=== PATIENT | female | born 1995 | race Caucasian/White ===

== ENCOUNTER 2017-04-28 10:57 | Emergency (ER) | payer SELFPAY ==
[~2017-04-28] VITALS: Ht 149.9 cm; Wt 65.8 kg
[2017-04-28] MEDS ORDERED: IV NORMAL SALINE 1,000ML 1,000 ML IV SCH (11:32)
[2017-04-28] MEDS ORDERED: KETOROLAC 30 MG/ML VIAL. IV ONE (11:45)
[2017-04-28] MEDS ORDERED: ONDANSETRON PF 4 MG/2 ML VIAL. IV ONE (11:45)
[2017-04-28] MEDS ORDERED: 0.9 % SODIUM CHLORIDE 10 ML DISP.SYRIN. IV PRN (11:45)
--- NOTE | 2017-04-28 11:51 | PHYS DOC ---
Past History Past Medical History: No Pertinent History Past Surgical History: No Surgical History Smoking: Non-smoker Alcohol Use: None Drug Use: None Adult General Chief Complaint Chief Complaint: ABDOMINAL PAIN HPI HPI 21 -year-old female patient complaining of epigastric pain that started 2 nights ago as a constant pain with moving to lower abdomen and associated with frequent episodes of nausea and vomiting and diarrhea. Patient states she had about 10 episodes of vomiting every day and since yesterday started to have 10 episodes of diarrhea with urinary frequency. Patient rated her pain 10 over 10 and denies fever and chills, vaginal bleeding or discharge, sick contacts, history of the same pain. Patient state LMP was 03/14/2017 and she usually has irregular menstruation because of endometriosis. Review of Systems Review of Systems Constitutional: Denies fever or chills [] Eyes: Denies change in visual acuity, redness, or eye pain [] HENT: Denies nasal congestion or sore throat [] Respiratory: Denies cough or shortness of breath [] Cardiovascular: No additional information not addressed in HPI [] GI: Reports abdominal pain, nausea, vomiting, diarrhea [] : Denies dysuria or hematuria [] Musculoskeletal: Denies back pain or joint pain [] Integument: Denies rash or skin lesions [] Neurologic: Denies headache, focal weakness or sensory changes [] Endocrine: Denies polyuria or polydipsia [] All other systems were reviewed and found to be within normal limits, except as documented in this note. Current Medications Current Medications Current Medications Medications (Trade) Dose Ordered Sig/Martina Start Time Stop Time Status Last Admin Dose Admin Ketorolac Tromethamine (Toradol) 30 mg 1X ONCE 04/28/17 11:45 04/28/17 11:46 UNV Ondansetron HCl (Zofran) 4 mg 1X ONCE 04/28/17 11:45 04/28/17 11:46 UNV Sodium Chloride (Normal Saline Flush) 10 ml QSHIFT PRN 04/28/17 11:45 UNV Allergies Allergies Allergies Coded Allergies Type Severity Reaction Last Updated Verified Penicillins Allergy Intermediate Hives 11/12/13 Yes diphenhydramine Allergy Intermediate Hives 11/12/13 Yes Physical Exam Physical Exam Constitutional: Well nourished, mild distress, non-toxic appearance. [] HENT: Normocephalic, atraumatic, bilateral external ears normal, oropharynx moist, no oral exudates, nose normal. [] Eyes: PERRLA, EOMI, conjunctiva normal, no discharge. [] Neck: Normal range of motion, no tenderness, supple, no stridor. [] Cardiovascular:Heart rate regular rhythm, no murmur [] Lungs & Thorax: Bilateral breath sounds clear to auscultation [] Abdomen: Bowel sounds normal, soft, no tenderness, no masses, no pulsatile masses. [] Skin: Warm, dry, no erythema, no rash. [] Back: No tenderness, no CVA tenderness. [] Extremities: No tenderness, no cyanosis, no clubbing, ROM intact, no edema. [] Neurologic: Alert and oriented X 3, normal motor function, normal sensory function, no focal deficits noted. [] Psychologic: Anxious, judgement normal, mood normal. [] Current Patient Data Lab Results Laboratory Tests Test 04/28/17 11:19 POC Urine HCG, Qualitative hcg negative (Negative) EKG EKG [] Radiology/Procedures Radiology/Procedures [] [place] [address] IMAGING REPORT Signed PATIENT: ELBERT RIBERA ACCOUNT: [id number] : 1995 LOCATION: ER AGE: 21 SEX: F EXAM STATUS: REG ER ORD. PHYSICIAN: EDUARDO MARTINEZ MD REASON: abdominal pain and hematuria PROCEDURE: CT ABDOMEN PELVIS WO CONTRAST CT study of the abdomen and pelvis without contrast Clinical indications: Right flank pain with vomiting for 2 days. Technique: Noncontrast helical CT scanning of the abdomen and pelvis was performed. Without contrast, the sensitivity to detect organ pathology and GI tract pathology decreased. PQRS Compliance Statement: One or more of the following individualized dose reduction techniques were utilized for this examination: 1. Automated exposure control 2. Adjustment of the mA and/or kV according to patient size 3. Use of iterative reconstruction technique comparison: None available. Findings: The liver and spleen and pancreas are homogeneous in appearance on this noncontrast study. The gallbladder is normal and no extrahepatic biliary ductal dilatation is seen. No adrenal mass is evident. No renal stone or ureteral stone or hydronephrosis or hydroureter is seen. The urinary bladder is not distended. No focal aneurysmal dilatation of the abdominal aorta is seen. No enlarged abdominal or pelvic lymphadenopathy is seen. No uterine mass or fibroid is seen. There is a cyst of the right ovary measuring 2 cm. No free fluid is seen within the cul-de-sac. No obstructive bowel pattern is seen. The terminal ileum is unremarkable. The appendix is normal. No free air or free fluid or mesenteric edema is seen. No osteolytic process is seen. No lung base consolidation is evident. IMPRESSION: No urinary tract stone or hydronephrosis or hydroureter is seen. 2 cm right ovarian cyst. No free fluid is evident. DICTATED AND SIGNED BY: GIANNI MILLARD MD DATE: 04/28/17 1325 CC: EDUARDO MARTINEZ MD; PCP,NO ~ Course & Med Decision Making Course & Med Decision Making Pertinent Labs and Imaging studies reviewed. (See chart for details) Evolution of patient in ER showed 21-year-old female patient with complaining of missed period and nausea and vomiting and diarrhea. Patient had unremarkable physical exam. UA was negative for but patient requested blood test for that was negative. Potassium was 3.2 and oral potassium was given. Patient tolerated oral intake. CT of abdomen and pelvis was unremarkable. Plan discharge patient home with diagnosis of acute gastroenteritis and hypokalemia. [] Dragon Disclaimer Dragon Disclaimer This electronic medical record was generated, in whole or in part, using a voice recognition dictation system. Departure Departure: Impression: Primary Impression: Acute gastroenteritis Additional Impressions: Negative test Irregular menses Hypokalemia Disposition: HOME, SELF-CARE (At 1355) Condition: IMPROVED Referrals: [facility] (PCP) Patient Instructions: Hypokalemia, Viral Gastroenteritis Additional Instructions: Drink plenty of liquids Follow-up with your primary care physician in 3-5 days Return to ER if not getting better Scripts Ondansetron (ZOFRAN ODT) 4 Mg Tab.rapdis 1 TAB SL Q8HRS, #15 TAB Prov: EDUARDO MARTINEZ MD 04/28/17 Problem Qualifiers EDUARDO MARTINEZ MD Apr 28, 2017 11:51
[2017-04-28 11:52] LABS: CLARITY,URINE CLEAR; COLOR,URINE YELLOW; GLUCOSE,URINE NEG (NEG); UROBILINOGEN,URINE 0.2 mg/dL (0.2 mg/dL)
[2017-04-28 11:53] LABS: NITRITE,URINE NEG (NEG)
[2017-04-28 11:54] LABS: BILIRUBIN,URINE NEG (NEG)
[2017-04-28 12:07] LABS: BARBITURATES NEG (NEG); BENZODIAZEPINES NEG (NEG); CANNABINOIDS POS (NEG); COCAINE NEG (NEG); METHADONE NEG (NEG); OPIATES NEG (NEG); PHENCYCLIDINE NEG (NEG)
[2017-04-28 12:10] LABS: AMPHETAMINE/METHAMPHETAMINE NEG (NEG)
[2017-04-28 12:11] LABS: BASO % 0 % (0-3); EOS # 0.1 x10^3/uL (0.0-0.7); EOS % 1 % (0-3); HEMATOCRIT 41.7 % (36.0-47.0); HEMOGLOBIN 14.3 g/dL (12.0-15.5); LYMPH % 19 % (24-48); MEAN CORPUSCULAR HEMOGLOBIN 31 pg (25-35); MEAN CORPUSCULAR HGB CONC 34 g/dL (31-37); MEAN CORPUSCULAR VOLUME 89 fL (79-100); MONO # 0.6 x10^3/uL (0.0-1.1); MONO % 5 % (0-9); NEUT # 8.3 x10^3uL (1.8-7.7); NEUT % 75 % (31-73); PLATELET COUNT 310 x10^3/uL (140-400); RED BLOOD COUNT 4.68 x10^6/uL (3.50-5.40); RED CELL DISTRIBUTION WIDTH 13.3 % (11.5-14.5); WHITE BLOOD COUNT 11.1 x10^3/uL (4.0-11.0)
[2017-04-28 13:05] LABS: PREG TEST PT QUAL NEGATIVE (NEG)
[2017-04-28 13:09] LABS: ALBUMIN 3.9 g/dL (3.4-5.0); ALBUMIN/GLOBULIN RATIO 1.1 (1.0-1.7); CALCIUM 8.7 mg/dL (8.5-10.1); CREATININE 0.5 mg/dL (0.6-1.0); GFR 155.7; POTASSIUM 3.2 mmol/L (3.5-5.1); TOTAL BILIRUBIN 0.5 mg/dL (0.2-1.0); TOTAL PROTEIN 7.3 g/dL (6.4-8.2)
--- NOTE | 2017-04-28 13:42 | RAD ---
CT study of the abdomen and pelvis without contrast Clinical indications: Right flank pain with vomiting for 2 days. Technique: Noncontrast helical CT scanning of the abdomen and pelvis was performed. Without contrast, the sensitivity to detect organ pathology and GI tract pathology decreased. PQRS Compliance Statement: One or more of the following individualized dose reduction techniques were utilized for this examination: 1. Automated exposure control 2. Adjustment of the mA and/or kV according to patient size 3. Use of iterative reconstruction technique comparison: None available. Findings: The liver and spleen and pancreas are homogeneous in appearance on this noncontrast study. The gallbladder is normal and no extrahepatic biliary ductal dilatation is seen. No adrenal mass is evident. No renal stone or ureteral stone or hydronephrosis or hydroureter is seen. The urinary bladder is not distended. No focal aneurysmal dilatation of the abdominal aorta is seen. No enlarged abdominal or pelvic lymphadenopathy is seen. No uterine mass or fibroid is seen. There is a cyst of the right ovary measuring 2 cm. No free fluid is seen within the cul-de-sac. No obstructive bowel pattern is seen. The terminal ileum is unremarkable. The appendix is normal. No free air or free fluid or mesenteric edema is seen. No osteolytic process is seen. No lung base consolidation is evident. IMPRESSION: No urinary tract stone or hydronephrosis or hydroureter is seen. 2 cm right ovarian cyst. No free fluid is evident.
[2017-04-28] MEDS ORDERED: ONDA4TAB10 SL (13:53)
[2017-04-28] MEDS ORDERED: POTASSIUM CHLORIDE 20 MEQ TABLET.ER. PO ONE (14:15)
== END 2017-04-28 14:06 | disposition home or self-care (01) ==
LOC: ER 10:57
DX: Z32.02 Encounter for pregnancy test, result negative (principal); K52.89 Other specified noninfective gastroenteritis and colitis; E87.6 Hypokalemia; N92.6 Irregular menstruation, unspecified; N83.201 Unspecified ovarian cyst, right side; Z88.0 Allergy status to penicillin; Z88.8 Allergy status to other drugs, medicaments and biological substances
CPT/HCPCS: 36415; 74176; 80053; 80307; 81003; 81025; 83690; 84703; 85025; 96361; 96374; 96375; 99285; J1885; J2405; G0479; J7030

== ENCOUNTER 2017-07-04 10:03 | Emergency (ER) | payer SELFPAY ==
[~2017-07-04] VITALS: Ht 149.9 cm; Wt 61.2 kg
[~2017-07-04 10:03] MED LIST: ONDA4TAB10 SL
[2017-07-04] MEDS ORDERED: IV NORMAL SALINE 1,000ML 1,000 ML IV SCH (10:15)
[2017-07-04] MEDS ORDERED: MORPHINE SULFATE 2 MG/ML DISP.SYRIN. IV/SQ PRN (10:15)
--- NOTE | 2017-07-04 10:18 | PHYS DOC ---
Past History Past Medical History: No Pertinent History Past Surgical History: No Surgical History Smoking: Non-smoker Alcohol Use: None Drug Use: None Adult General Chief Complaint Chief Complaint: NAUSEA/VOMITING/DIARRHEA HPI HPI Patient is a healthy 22-year-old white female, who presents to the emergency department for evaluation. For the past 3 days, she has had multiple episodes of nausea, vomiting, and diarrhea. She states that her emesis is mostly food and gastric contents, although her past episodes of emesis have had slight blood tinges. She has not had any black or bloody stools. She states she has had multiple episodes of watery stools. She does report some generalized abdominal discomfort, most prominent in her epigastric area. She also has some diffuse lower abdominal discomfort. She has not had any urinary symptoms, vaginal bleeding, or discharge. She has not had any fevers or chills. She denies any recent travel or antibiotic use. There are no alleviating, or exacerbating factors to her symptoms. Review of Systems Review of Systems Constitutional: Denies fever or chills [] Eyes: Denies change in visual acuity, redness, or eye pain [] HENT: Denies nasal congestion or sore throat [] Respiratory: Denies shortness of breath. Has had a cough. [] Cardiovascular: The patient denies any shortness of breath, chest pain, palpitations, or orthopnea [] GI: As per history of present illness[] : Denies dysuria or hematuria [] Musculoskeletal: Denies back pain or joint pain [] Integument: Denies rash or skin lesions [] Neurologic: Denies headache, focal weakness or sensory changes [] Endocrine: Denies polyuria or polydipsia [] All other systems were reviewed and found to be within normal limits, except as documented in this note. Allergies Allergies Allergies Coded Allergies Type Severity Reaction Last Updated Verified Penicillins Allergy Intermediate Hives 11/12/13 Yes diphenhydramine Allergy Intermediate Hives 11/12/13 Yes Physical Exam Physical Exam PHYSICAL EXAM: CONSTITUTIONAL: Well developed, well nourished HEAD: normocephalic, atraumatic EENT: PERRL, EOMI. Conjunctivae normal color, sclerae non-icteric; moist mucous membranes. NECK: Supple, non-tender; no meningismus. LUNGS: Lungs CTA, breathing even and unlabored. Normal air movement. HEART: Regular rate and rhythm, no murmur CHEST: No deformity; non-tender ABDOMEN: The abdomen is soft, normal bowel sounds are present, there is diffuse tenderness to palpation to the entire abdomen, without focal tenderness, rebound , or guarding, no masses or bruits. EXTREM: Normal ROM; no deformity, no calf tenderness. Normal pulses palpable in all extremities. There is no pedal edema. SKIN: No rash; no diaphoresis NEURO: Alert; normal speech and cognition; CN's grossly intact; strength grossly intact without focal deficit. BACK: No CVA TTP. EKG EKG [] Radiology/Procedures Radiology/Procedures PROCEDURE: CT ABD PELV W/ORAL&IV CONTRAST EXAM: Abdomen and pelvis CT with intravenous contrast. HISTORY: Pain and leukocytosis. TECHNIQUE: Computed tomographic images of the abdomen and pelvis were obtained following the administration of 75 cc Omnipaque 300 intravenous contrast. Multiplanar reformatting was performed. *One or more of the following individualized dose reduction techniques were utilized for this examination: 1. Automated exposure control. 2. Adjustment of the mA and/or kV according to patient size. 3. Use of iterative reconstruction technique. COMPARISON: 04/28/2017. FINDINGS: Evaluation of the lower thorax demonstrates groundglass opacity within the medial left lower lobe, measuring approximately 2.4 cm in maximum dimension. There is no pleural effusion. The heart is 1 size. No hepatic lesion is seen. The gallbladder, pancreas, spleen, adrenal glands and kidneys are unremarkable. There are prominent contrast-filled loops of small bowel within the left abdomen. There is fluid within the proximal colon. The appendix is normal in appearance. There is no clear bowel wall thickening. There is no free air. The urinary bladder and uterus are unremarkable. There are multiple ovarian follicles with a dominant peripherally enhancing left ovarian follicular cyst measuring 2.0 cm. There is a small amount of nonspecific pelvic free fluid. No pathologically enlarged lymph node is seen. There is no suspicious osseous lesion. IMPRESSION: 1. Prominent contrast-filled loops of small bowel within the left abdomen. There is no convincing enteritis or obstruction. There is fluid within the proximal colon, a nonspecific finding which can be seen with history of diarrhea. The appendix is normal in appearance. 2. 2.0 cm suspected involuting dominant left ovarian follicular cyst. 3. Focal groundglass infiltrate within the medial left lower lobe, new compared to the prior study. This may be due to pneumonia/pneumonitis. Course & Med Decision Making Course & Med Decision Making Pertinent Labs and Imaging studies reviewed. (See chart for details) [1:05 PM: The patient's condition remained stable. She is feeling somewhat better at this time. I discussed test results with the patient, the need for establishing care with a local primary care provider for further follow-up and evaluation, as well as follow-up of pending stool studies, and return precautions were discussed in detail. She does admit now to a cough, productive of some clear and greenish mucus. She'll be treated with antibiotics for possible pneumonia.] Dragon Disclaimer Dragon Disclaimer This electronic medical record was generated, in whole or in part, using a voice recognition dictation system. Departure Departure: Impression: Primary Impression: Gastroenteritis Additional Impression: Pneumonia Disposition: 01 HOME, SELF-CARE Condition: STABLE Patient Instructions: Diarrhea, Nausea and Vomiting, Pneumonia, Adult, Viral Gastroenteritis Scripts Ciprofloxacin Hcl (CIPRO) 500 Mg Tablet 1 TAB PO BID, #14 TAB Prov: AUSTEN GUAN MD 07/04/17 Promethazine Hcl (PROMETHAZINE HCL) 25 Mg Tablet 1 TAB PO PRN Q6HRS, #20 TAB Prov: AUSTEN GUAN MD 07/04/17 Problem Qualifiers AUSTEN GUAN MD July 04, 2017 10:18
[2017-07-04] MEDS ORDERED: ONDANSETRON PF 4 MG/2 ML VIAL. IV ONE (10:30)
[2017-07-04] MEDS ORDERED: IV NORMAL SALINE 50ML 50 ML ONE (10:40)
[2017-07-04] MEDS ORDERED: PROMETHAZINE 25 MG/ML VIAL IV ONE (10:40)
[2017-07-04] MEDS ORDERED: PROMETHAZINE 25 MG in IV NORMAL SALINE 50ML 50 ML IV PRN (10:45)
[2017-07-04] MEDS ORDERED: MORPHINE SULFATE 4 MG/ML DISP.SYRIN. IV/SQ PRN (10:45)
[2017-07-04 10:48] LABS: BASO # 0.1 x10^3/uL (0.0-0.2); BASO % 0 % (0-3); EOS # 0.2 x10^3/uL (0.0-0.7); EOS % 1 % (0-3); HEMATOCRIT 44.9 % (36.0-47.0); HEMOGLOBIN 15.4 g/dL (12.0-15.5); LYMPH # 2.7 x10^3/uL (1.0-4.8); LYMPH % 12 % (24-48); MEAN CORPUSCULAR HEMOGLOBIN 30 pg (25-35); MEAN CORPUSCULAR HGB CONC 34 g/dL (31-37); MEAN CORPUSCULAR VOLUME 88 fL (79-100); MONO % 5 % (0-9); NEUT # 18.9 x10^3uL (1.8-7.7); NEUT % 83 % (31-73); PLATELET COUNT 373 x10^3/uL (140-400); RED BLOOD COUNT 5.11 x10^6/uL (3.50-5.40); RED CELL DISTRIBUTION WIDTH 13.4 % (11.5-14.5); WHITE BLOOD COUNT 22.9 x10^3/uL (4.0-11.0)
[2017-07-04 11:01] LABS: ALBUMIN 4.3 g/dL (3.4-5.0); CALCIUM 9.4 mg/dL (8.5-10.1); CREATININE 0.5 mg/dL (0.6-1.0); GFR 154.3; POTASSIUM 3.7 mmol/L (3.5-5.1); TOTAL BILIRUBIN 0.4 mg/dL (0.2-1.0); TOTAL PROTEIN 8.5 g/dL (6.4-8.2)
[2017-07-04 11:02] LABS: BACTERIA,URINE FEW /HPF (0-FEW); BILIRUBIN,URINE NEG (NEG); CLARITY,URINE CLOUDY; COLOR,URINE YELLOW; GLUCOSE,URINE NEG (NEG); NITRITE,URINE NEG (NEG); UROBILINOGEN,URINE 0.2 mg/dL (0.2 mg/dL)
[2017-07-04 11:03] LABS: SQUAMOUS EPITHELIAL CELL,UR MOD /LPF
[2017-07-04 11:04] LABS: PREG TEST PT QUAL NEGATIVE (NEG)
[2017-07-04] MEDS ORDERED: IOHEXOL 240 MG/ML 50ML VIAL. ONE (11:06)
[2017-07-04] MEDS ORDERED: IOHEXOL 300 MG/ML 75 ML VIAL. IV ONE (11:30)
[2017-07-04 11:36] LABS: % BANDS 1 % (0-9); % EOS 2 % (0-5); % LYMPHS 11 % (24-48); % MONOS 3 % (0-10); % SEGS 83 % (35-66)
[2017-07-04 11:37] LABS: PLT ESTIMATE INCREASED (ADEQUATE)
[2017-07-04 11:38] LABS: TOXIC GRANULATION SLIGHT
[2017-07-04 11:58] LABS: FECAL OB PT NEGATIVE (NEG)
--- NOTE | 2017-07-04 12:52 | RAD ---
EXAM: Abdomen and pelvis CT with intravenous contrast. HISTORY: Pain and leukocytosis. TECHNIQUE: Computed tomographic images of the abdomen and pelvis were obtained following the administration of 75 cc Omnipaque 300 intravenous contrast. Multiplanar reformatting was performed. *One or more of the following individualized dose reduction techniques were utilized for this examination: 1. Automated exposure control. 2. Adjustment of the mA and/or kV according to patient size. 3. Use of iterative reconstruction technique. COMPARISON: 04/28/2017. FINDINGS: Evaluation of the lower thorax demonstrates groundglass opacity within the medial left lower lobe, measuring approximately 2.4 cm in maximum dimension. There is no pleural effusion. The heart is 1 size. No hepatic lesion is seen. The gallbladder, pancreas, spleen, adrenal glands and kidneys are unremarkable. There are prominent contrast-filled loops of small bowel within the left abdomen. There is fluid within the proximal colon. The appendix is normal in appearance. There is no clear bowel wall thickening. There is no free air. The urinary bladder and uterus are unremarkable. There are multiple ovarian follicles with a dominant peripherally enhancing left ovarian follicular cyst measuring 2.0 cm. There is a small amount of nonspecific pelvic free fluid. No pathologically enlarged lymph node is seen. There is no suspicious osseous lesion. IMPRESSION: 1. Prominent contrast-filled loops of small bowel within the left abdomen. There is no convincing enteritis or obstruction. There is fluid within the proximal colon, a nonspecific finding which can be seen with history of diarrhea. The appendix is normal in appearance. 2. 2.0 cm suspected involuting dominant left ovarian follicular cyst. 3. Focal groundglass infiltrate within the medial left lower lobe, new compared to the prior study. This may be due to pneumonia/pneumonitis. Electronically signed by: Jackie Ram MD (07/04/2017 12:49 PM) [id number]
[2017-07-04] MEDS ORDERED: PROM25TA10 PO (13:07)
[2017-07-04] MEDS ORDERED: CIPR500T94 PO (13:07)
[2017-07-04 13:10] VITALS: BP 114/68
== END 2017-07-04 13:15 | disposition home or self-care (01) ==
LOC: ER 10:03
DX: J18.9 Pneumonia, unspecified organism (principal); K52.9 Noninfective gastroenteritis and colitis, unspecified; Z88.0 Allergy status to penicillin; Z88.8 Allergy status to other drugs, medicaments and biological substances
CPT/HCPCS: 36415; 74177; 80053; 81001; 82274; 83690; 84703; 85007; 85025; 87045; 87324; 96365; 96375; 99285; J2270; J2550; Q9967; J7030

== ENCOUNTER 2020-06-13 12:39 | Emergency (ER) | payer MEDICAID, OTHER ==
[~2020-06-13] VITALS: Ht 144.8 cm; Wt 69.1 kg
[~2020-06-13 12:39] MED LIST changes: +CIPR500T94 PO; +PROM25TA10 PO
--- NOTE | 2020-06-13 12:58 | PHYS DOC ---
Past History Past Medical History: No Pertinent History (SULAIMAN MEADE APRN) Past Surgical History: No Surgical History (SULAIMAN MEADE APRN) Smoking: Non-smoker Alcohol Use: None Drug Use: Marijuana (SULAIMAN MEADE APRN) General Adult EDM: Chief Complaint: NAUSEA/VOMITING/DIARRHEA HPI: HPI: Patient is a 25-year-old female presents with nausea and vomiting since this morning. Patient is denying fever, abdominal pain. Patient denies all other symptoms. Last menstrual period was the end of April. Patient denies dysuria or frequency. Patient states "I am unable to keep anything down". Denies taking anything prior to arrival. Patient denies any nuchal history. (SULAIMAN MEADE APRN) Review of Systems: Review of Systems: Constitutional: Denies fever or chills Eyes: Denies change in visual acuity HENT: Denies nasal congestion or sore throat Respiratory: Denies cough or shortness of breath Cardiovascular: Denies chest pain or edema GI: Denies abdominal pain, denies diarrhea. Reports nausea, vomiting : Denies dysuria Musculoskeletal: Denies back pain or joint pain Integument: Denies rash Neurologic: Denies headache, focal weakness or sensory changes Endocrine: Denies polyuria or polydipsia Lymphatic: Denies swollen glands Psychiatric: Denies depression or anxiety (SULAIMAN MEADE APRN) Allergies: Allergies: Allergies Coded Allergies Type Severity Reaction Last Updated Verified Penicillins Allergy Intermediate Hives 06/13/20 Yes diphenhydramine Allergy Intermediate Hives 06/13/20 Yes cefixime Allergy Unknown 06/13/20 Yes (SULAIMAN MEADE APRN) Physical Exam: PE: Constitutional: Well developed, well nourished, no acute distress, non-toxic appearance. [] HENT: Normocephalic, atraumatic, bilateral external ears normal, oropharynx moist, no oral exudates, nose normal. [] Eyes: PERRLA, EOMI, conjunctiva normal, no discharge. [] Neck: Normal range of motion, no tenderness, supple, no stridor. [] Cardiovascular:Heart rate regular rhythm, no murmur [] Lungs & Thorax: Bilateral breath sounds clear to auscultation [] Abdomen: Bowel sounds normal, soft, no tenderness, no masses, no pulsatile mass es. [] Skin: Warm, dry, no erythema, no rash. [] Back: No tenderness, no CVA tenderness. [] Extremities: No tenderness, no cyanosis, no clubbing, ROM intact, no edema. [] Neurologic: Alert and oriented X 3, normal motor function, normal sensory function, no focal deficits noted. [] Psychologic: Affect normal, judgement normal, mood normal. [] (SULAIMAN MEADE APRN) EKG: EKG: Sinus rhythm, heart rate 80 bpm. [] (SULAIMAN MEADE APRN) Radiology/Procedures: Radiology/Procedures: [] (SULAIMAN MEADE APRN) Heart Score: C/O Chest Pain: No Risk Factors: Risk Factors: DM, Current or recent (<one month) smoker, HTN, HLP, family history of CAD, obesity. Risk Scores: Score 0 - 3: 2.5% MACE over next 6 weeks - Discharge Home Score 4 - 6: 20.3% MACE over next 6 weeks - Admit for Clinical Observation Score 7 - 10: 72.7% MACE over next 6 weeks - Early Invasive Strategies (SULAIMAN MEADE APRN) Course & Med Decision Making: Course & Med Decision Making Pertinent Labs and Imaging studies reviewed. (See chart for details) [] Patient presents with nausea and vomiting that started this morning. Patient denies any fevers or abdominal pain. Denies taking anything prior to arrival. Zofran given for nausea and vomiting. Patient reports symptoms have resolved after Zofran. Sending patient home with Zofran for nausea. Urine prep negativ e. Patient most likely has a gastroenteritis. Patient instructed to return to the emergency room with worsening symptoms or concerns. Patient is hemodynamically stable. Patient is appreciative and okay with this plan. (SULAIMAN MEADE APRN) Dragon Disclaimer: Dragon Disclaimer: This electronic medical record was generated, in whole or in part, using a voice recognition dictation system. (SULAIMAN MEADE APRN) Attending Co-Sign The patient was seen and interviewed as well as examined at the bedside. The chart was reviewed. The case was discussed. Agree with the plan of care. (MARLI NICOLE DO) Departure Departure: Impression: Primary Impression: Gastroenteritis Disposition: HOME / SELF CARE / HOMELESS Condition: STABLE Referrals: PCP,NO (PCP) Patient Instructions: Viral Gastroenteritis, [id number] Additional Instructions: You are seen emergency room for nausea and vomiting that started this morning. You were given fluids and Zofran in the emergency room which resolved your symptoms. I am sending you home with a prescription for Zofran to take for nausea and vomiting. Return to the emergency room with worsening symptoms or concerns. EMERGENCY DEPARTMENT GENERAL DISCHARGE INSTRUCTIONS Thank you for coming to [facility] (ED) today and trusting us with you care. We trust that you had a positivie experience in our Emergency Department. If you wish to speak to the department management, you may call the director at [phone]. YOUR FOLLOW UP INSTRUCTIONS ARE FOLLOWS: 1. Do you have a private Doctor? If you do not have a private doctor, please ask for a resource list of physicians or clinics that may be able to assist you with follow up care. 2. The Emergency Physician has interpreted your x-rays. The X-Ray specialist will also review them. If there is a change in the findings, you will be notified in 48 hours when at all possible. 3. A lab test or culture has been done, your results will be reviewed and you will be notified if you need a change in treatment. ADDITIONAL INSTRUCTIONS AND INFORMATION: 1. Your care today has been supervised by a physician who is specially trained in emergency care. Many problems require more than one evaluation for a complete diagnosis and treatment. We recommend that you schedule your follow up appointment as recommended to ensure complete treatment of you illness or injury. If you are unable to obtain follow up care and continue to have a problem, or if your condition worsens, we recommend that you return to the ED. 2. We are not able to safely determine your condition over the phone nor are we able to give sound medical advice over the phone. For these safety reasons, if you call for medical advice we will ask you to come to the ED for further evaluation. 3. If you have any questions regarding these discharge instructions please call the ED at [phone]. SAFETY INFORMATION: In the interest of safety, wellness, and injury prevention; we encourage you to wear your sealbelt, if you smoke; quite smoking, and we encourage family to use a protective helmet for bicycling and other sporting events that present an increased risk for head injury. IF YOUR SYMPTOMS WORSEN OR NEW SYMPTOMS DEVELOP, OR YOU HAVE CONCERNS ABOUT YOUR CONDITION; OR IF YOUR CONDITION WORSENS WHILE YOU ARE WAITING FOR YOUR FOLLOW UP APPOINTMENT; EITHER CONTACT YOUR PRIMARY CARE DOCTOR, THE PHYSICIAN WHOSE NAME AND NUMBER YOU WERE GIVEN, OR RETURN TO THE ED IMMEDIATELY. Scripts Ondansetron Hcl (ZOFRAN) 4 Mg Tablet 4 MG PO TID PRN PRN for NAUSEA, #9 TAB Prov: SULAIMAN EMADE APRN 06/13/20 SULAIMAN MEADE APRN Jun 13, 2020 12:58 MARLI NICOLE DO Jun 14, 2020 06:14
[2020-06-13] MEDS ORDERED: ONDANSETRON PF 4 MG/2 ML VIAL. IVP ONE (13:00)
[2020-06-13] MEDS ORDERED: IV NORMAL SALINE 1,000ML 1,000 ML IV ONE (13:15)
[2020-06-13 13:26] LABS: BASO # 0.1 x10^3/uL (0.0-0.2); BASO % 0 % (0-3); CALCIUM 9.2 mg/dL (8.5-10.1); CREATININE 0.6 mg/dL (0.6-1.0); EOS % 0 % (0-3); GFR 121.8; HEMOGLOBIN 13.3 g/dL (12.0-15.5); LYMPH % 14 % (24-48); MEAN CORPUSCULAR HEMOGLOBIN 29 pg (25-35); MEAN CORPUSCULAR HGB CONC 33 g/dL (31-37); MEAN CORPUSCULAR VOLUME 85 fL (79-100); MONO # 0.4 x10^3/uL (0.0-1.1); MONO % 3 % (0-9); NEUT # 12.4 x10^3uL (1.8-7.7); NEUT % 83 % (31-73); PLATELET COUNT 418 x10^3/uL (140-400); POTASSIUM 3.7 mmol/L (3.5-5.1); RED BLOOD COUNT 4.69 x10^6/uL (3.50-5.40); RED CELL DISTRIBUTION WIDTH 15.2 % (11.5-14.5); WHITE BLOOD COUNT 14.8 x10^3/uL (4.0-11.0)
[2020-06-13] MEDS ORDERED: ONDA4TAB7 PO (13:58)
--- NOTE | 2020-06-13 15:03 | EKG ---
[address] [address] Test Date: 2020-06-13 Test Time: 13:06:21 Pat Name: ELBERT RIBERA Department: Room: Gender: F [employer]: NATHAN : 1995 Requested By: SULAIMAN MEADE Order Number: [id number] Reading MD: Measurements Intervals [place] Rate: 80 P: 47 NV: 160 QRS: 14 QRSD: 92 T: 25 QT: 394 QTc: 458 Interpretive Statements SINUS RHYTHM NO SPECIFIC ECG ABNORMALITIES RI6.02 No previous ECG available for comparison
[2020-06-13 15:05] VITALS: BP 103/58
[2020-06-13 15:10] LABS: BILIRUBIN,URINE NEG (NEG); CLARITY,URINE HAZY; COLOR,URINE AMBER; GLUCOSE,URINE NEG (NEG); NITRITE,URINE NEG (NEG); RBC,URINE RARE /HPF (0-2); UROBILINOGEN,URINE 0.2 mg/dL (0.2 mg/dL); WBC,URINE OCC /HPF (0-4)
[2020-06-13 15:11] LABS: BACTERIA,URINE FEW /HPF (0-FEW); SQUAMOUS EPITHELIAL CELL,UR MANY /LPF
== END 2020-06-13 15:18 | disposition home or self-care (01) ==
LOC: ER 12:39
DX: K52.9 Noninfective gastroenteritis and colitis, unspecified (principal); Z88.0 Allergy status to penicillin; Z88.5 Allergy status to narcotic agent; Z88.8 Allergy status to other drugs, medicaments and biological substances
CPT/HCPCS: 36415; 80048; 81001; 81025; 85025; 93005; 96361; 96374; 99285; J2405; J7030

== ENCOUNTER 2020-08-16 23:28 | Emergency (ER) | payer MEDICAID ==
[~2020-08-16] VITALS: Ht 144.8 cm; Wt 70.0 kg
[~2020-08-16 23:28] MED LIST changes: +ONDA4TAB7 PO
[2020-08-17] MEDS ORDERED: ONDANSETRON PF 4 MG/2 ML VIAL. IVP ONE
[2020-08-17] MEDS ORDERED: KETOROLAC 15 MG/ML VIAL. IVP ONE
[2020-08-17] MEDS ORDERED: IV NORMAL SALINE 1,000ML 1,000 ML IV ONE
[2020-08-17 00:29] LABS: BASO # 0.1 x10^3/uL (0.0-0.2); BASO % 0 % (0-3); EOS # 0.1 x10^3/uL (0.0-0.7); EOS % 1 % (0-3); HEMATOCRIT 41.2 % (36.0-47.0); HEMOGLOBIN 13.6 g/dL (12.0-15.5); LYMPH # 2.2 x10^3/uL (1.0-4.8); LYMPH % 12 % (24-48); MEAN CORPUSCULAR HEMOGLOBIN 28 pg (25-35); MEAN CORPUSCULAR HGB CONC 33 g/dL (31-37); MEAN CORPUSCULAR VOLUME 85 fL (79-100); MONO # 0.8 x10^3/uL (0.0-1.1); MONO % 4 % (0-9); NEUT # 14.7 x10^3uL (1.8-7.7); NEUT % 82 % (31-73); PLATELET COUNT 310 x10^3/uL (140-400); RED BLOOD COUNT 4.87 x10^6/uL (3.50-5.40); RED CELL DISTRIBUTION WIDTH 15.5 % (11.5-14.5); WHITE BLOOD COUNT 17.8 x10^3/uL (4.0-11.0)
[2020-08-17 00:32] LABS: U PREG PATIENT NEGATIVE (NEG)
[2020-08-17 00:40] LABS: ALBUMIN 4.4 g/dL (3.4-5.0); ALBUMIN/GLOBULIN RATIO 1.1 (1.0-1.7); CREATININE 0.7 mg/dL (0.6-1.0); MAGNESIUM 2.2 mg/dL (1.8-2.4); POTASSIUM 3.2 mmol/L (3.5-5.1); TOTAL BILIRUBIN 0.6 mg/dL (0.2-1.0); TOTAL PROTEIN 8.4 g/dL (6.4-8.2)
--- NOTE | 2020-08-17 00:42 | PHYS DOC ---
Past History Past Medical History: No Pertinent History Past Surgical History: No Surgical History Smoking: Non-smoker Alcohol Use: Rarely Drug Use: Marijuana General Adult EDM: Chief Complaint: FLANK PAIN HPI: HPI: 25-year-old female presents with 1 day history of right flank pain with radiation to abdomen. Patient does report worse with urination. Denies known hematuria. Denies . Denies trauma. Reports associated nausea. Denies history of kidney stones. Review of Systems: Review of Systems: Constitutional: Denies fever or chills Eyes: Denies redness or eye pain HENT: Denies nasal congestion or sore throat Respiratory: Denies cough or shortness of breath Cardiovascular: Denies chest pain or palpitations GI: Reports abdominal pain and nausea; denies vomiting : Reports dysuria; denies hematuria Musculoskeletal: Reports right flank/back pain; denies joint pain Integument: Denies rash or skin lesions Neurologic: Denies headache, focal weakness or sensory changes Complete systems were reviewed and found to be within normal limits, except as documented in this note. Current Medications: Current Meds: Current Medications Medications (Trade) Dose Ordered Sig/[facility] Start Time Stop Time Status Last Admin Dose Admin Ketorolac Tromethamine (Toradol 15mg Vial) 15 mg 1X ONCE 08/17/20 00:00 08/17/20 00:01 DC 08/17/20 00:13 15 MG Ondansetron HCl (Zofran) 4 mg 1X ONCE 08/17/20 00:00 08/17/20 00:01 DC 08/17/20 00:13 4 MG Sodium Chloride 1,000 ml @ 1,000 mls/hr 1X ONCE 08/17/20 00:00 08/17/20 00:59 08/17/20 00:14 1,000 MLS/HR Allergies: Allergies: Allergies Coded Allergies Type Severity Reaction Last Updated Verified Penicillins Allergy Intermediate Hives 06/13/20 Yes diphenhydramine Allergy Intermediate Hives 06/13/20 Yes cefixime Allergy Unknown 06/13/20 Yes Physical Exam: PE: Constitutional: Well developed, well nourished, uncomfortable, non-toxic appearance HENT: Normocephalic, atraumatic Eyes: Conjunctiva normal, no discharge Neck: Normal range of motion, supple Lungs & Thorax: No respiratory distress, equal chest rise and fall Abdomen: Soft, suprapubic tenderness Skin: Warm, dry, no erythema, no rash Back: No tenderness, right CVA tenderness Extremities: No tenderness, ROM intact, no edema Neurologic: Alert and oriented X 3, no focal deficits noted Psychologic: Affect normal, judgment normal Current Patient Data: Labs: Laboratory Tests Test 08/16/20 23:40 08/16/20 23:50 Urine Test Negative (NEG) White Blood Count 17.8 x10^3/uL (4.0-11.0) H Red Blood Count 4.87 x10^6/uL (3.50-5.40) Hemoglobin 13.6 g/dL (12.0-15.5) Hematocrit 41.2 % (36.0-47.0) Mean Corpuscular Volume 85 fL (79-100) Mean Corpuscular Hemoglobin 28 pg (25-35) Mean Corpuscular Hemoglobin Concent 33 g/dL (31-37) Red Cell Distribution Width 15.5 % (11.5-14.5) H Platelet Count 310 x10^3/uL (140-400) Neutrophils (%) (Auto) 82 % (31-73) H Lymphocytes (%) (Auto) 12 % (24-48) L Monocytes (%) (Auto) 4 % (0-9) Eosinophils (%) (Auto) 1 % (0-3) Basophils (%) (Auto) 0 % (0-3) Neutrophils # (Auto) 14.7 x10^3uL (1.8-7.7) H Lymphocytes # (Auto) 2.2 x10^3/uL (1.0-4.8) Monocytes # (Auto) 0.8 x10^3/uL (0.0-1.1) Eosinophils # (Auto) 0.1 x10^3/uL (0.0-0.7) Basophils # (Auto) 0.1 x10^3/uL (0.0-0.2) Platelet Estimate Pending EKG: EKG: [] Radiology/Procedures: Radiology/Procedures: PROCEDURE: CT ABDOMEN PELVIS WO CONTRAST EXAMINATION: CT ABDOMEN+PELVIS WO CLINICAL HISTORY: Right flank pain eval for kidney stone TECHNIQUE: Non-IV contrast imaging of the abdomen and pelvis was performed using standard technique, scanning from just above the dome of the diaphragm to the symphysis pubis. Unenhanced imaging is limited for the evaluation of some intra-abdominal and pelvic pathology. CT Dose Reduction Employed: One or more of the following individualized dose reduction techniques were utilized for this examination: 1. Automated exposure control 2. Adjustment of the mA and/or kV according to patient size 3. Use of iterative reconstruction technique. COMPARISON: None FINDINGS: Partially visualized heart and lungs unremarkable. Old calcified granulomas in the spleen. Liver, gallbladder, pancreas, and adrenal glands unremarkable. Kidneys unremarkable. No visualized urolithiasis or evidence of obstructive uropathy. Decompressed urinary bladder suboptimally evaluated. Uterus and adnexa unremarkable. No dilated bowel. 2 mm distal appendicolith in the nondilated appendix. No abdominal aortic or iliac artery aneurysm. No evidence of acute osseous abnormality. IMPRESSION: No evidence of acute abdominopelvic abnormality. No visualized urolithiasis or evidence of obstructive uropathy. Tiny appendicolith in the nondilated appendix. Electronically signed by: Mehul Romero DO (08/17/2020 1:10 AM) [facility] Heart Score: C/O Chest Pain: N/A Course & Med Decision Making: Course & Med Decision Making Pertinent Labs and Imaging studies reviewed. (See chart for details) Patient presents with acute onset of right flank pain with radiation to abdomen and dysuria. Symptomatic treatment provided. IV fluid hydration given. Labs obtained and posted to chart. WBC elevated. Urine negative. UA without signs of infection. Hypokalemia noted and addressed. CT abdomen/pelvis without acute process. Patient stable for discharge with outpatient follow-up with PCP/GI. GI referral provided. Discussed findings and plan with patient, who acknowledges understanding and agreement. Pema Disclaimer: Pema Disclaimer: This electronic medical record was generated, in whole or in part, using a voice recognition dictation system. Departure Departure: Impression: Primary Impression: Flank pain Additional Impressions: Leukocytosis Qualified Codes: D72.829 - Elevated white blood cell count, unspecified Hypokalemia Nausea Disposition: 01 HOME / SELF CARE / HOMELESS Condition: STABLE Referrals: PCP,NO (PCP) BAILEY OAKLEY MD Patient Instructions: Flank Pain, [id number], Hypokalemia, Leukocytosis, Anthony sea, Adult, [id number], Potassium Content of Foods Additional Instructions: Increase fluid hydration. Scripts Orphenadrine Citrate (ORPHENADRINE CITRATE) 100 Mg Tablet.er 1 TAB PO BID PRN for MUSCLE PAIN, #14 TAB 0 Refills Prov: LOLI PELAEZ DO 08/17/20 Ondansetron (ONDANSETRON ODT) 4 Mg Tab.rapdis 1 TAB PO PRN Q6-8HRS PRN for NAUSEA, #16 TAB Prov: LOLI PELAEZ DO 08/17/20 LOLI PELAEZ DO Aug 17, 2020 00:42
[2020-08-17 00:47] LABS: BACTERIA,URINE 0 /HPF (0-FEW); BILIRUBIN,URINE SMALL (NEG); CLARITY,URINE HAZY; COLOR,URINE YELLOW; GLUCOSE,URINE NEG (NEG); NITRITE,URINE NEG (NEG); RBC,URINE OCC /HPF (0-2); SQUAMOUS EPITHELIAL CELL,UR MOD /LPF; UROBILINOGEN,URINE 0.2 mg/dL (0.2 mg/dL); WBC,URINE OCC /HPF (0-4)
[2020-08-17 00:51] LABS: % BANDS 1 % (0-9); % EOS 1 % (0-5); % LYMPHS 18 % (24-48); % MONOS 8 % (0-10); % SEGS 72 % (35-66)
[2020-08-17 00:52] LABS: PLT ESTIMATE ADEQUATE (ADEQUATE)
--- NOTE | 2020-08-17 01:12 | RAD ---
EXAMINATION: CT ABDOMEN+PELVIS WO CLINICAL HISTORY: Right flank pain eval for kidney stone TECHNIQUE: Non-IV contrast imaging of the abdomen and pelvis was performed using standard technique, scanning from just above the dome of the diaphragm to the symphysis pubis. Unenhanced imaging is alex ited for the evaluation of some intra-abdominal and pelvic pathology. CT Dose Reduction Employed: One or more of the following individualized dose reduction techniques wer e utilized for this examination: 1. Automated exposure control 2. Adjustment of the mA and/or kV ac cording to patient size 3. Use of iterative reconstruction technique. COMPARISON: None FINDINGS: Partially visualized heart and lungs unremarkable. Old calcified granulomas in the spleen. Liver, gallbladder, pancreas, and adrenal glands unremarkable . Kidneys unremarkable. No visualized urolithiasis or evidence of obstructive uropathy. Decompressed urinary bladder suboptimally evaluated. Uterus and adnexa unremarkable. No dilated bowel. 2 mm distal appendicolith in the nondilated appendix. No abdominal aortic or iliac artery aneurysm. No evidence of acute osseous abnormality. IMPRESSION: No evidence of acute abdominopelvic abnormality. No visualized urolithiasis or evidence of obstructive uropathy. Tiny appendicolith in the nondilated appendix. Electronically signed by: Mehul Romero DO (08/17/2020 1:10 AM) [facility]
[2020-08-17] MEDS ORDERED: ONDA4TAB12 PO (01:24)
[2020-08-17] MEDS ORDERED: ORPH-16 PO (01:24)
[2020-08-17 01:35] VITALS: BP 92/56
[2020-08-17] MEDS ORDERED: POTASSIUM CHLORIDE 20 MEQ TABLET.ER. PO ONE (02:00)
== END 2020-08-17 01:35 | disposition home or self-care (01) ==
LOC: ER 23:28
DX: D72.829 Elevated white blood cell count, unspecified (principal); E87.6 Hypokalemia; R10.30 Lower abdominal pain, unspecified; R11.0 Nausea; Z88.0 Allergy status to penicillin; Z88.8 Allergy status to other drugs, medicaments and biological substances
CPT/HCPCS: 36415; 74176; 80053; 81001; 81025; 83605; 83735; 85007; 85025; 96361; 96374; 96375; 99284; J1885; J2405; J7030

== ENCOUNTER 2020-11-06 08:46 | Emergency (ER) | payer MEDICAID ==
[~2020-11-06] VITALS: Ht 144.8 cm; Wt 70.0 kg
[~2020-11-06 08:46] MED LIST changes: +ONDA4TAB12 PO; +ORPH-16 PO
[2020-11-06 08:55] VITALS: BP 136/66
[2020-11-06] MEDS ORDERED: IV NORMAL SALINE 1,000ML 1,000 ML IV ONE (09:30)
[2020-11-06] MEDS ORDERED: ONDANSETRON PF 4 MG/2 ML VIAL. IVP ONE (09:30)
--- NOTE | 2020-11-06 09:44 | RAD ---
XR CHEST 1V Clinical History: Reason: vomtiing / Spl. Instructions: / History: Technique: AP view of the chest was obtained at 11/06/2020 9:34 AM. Comparison: None. Findings: The cardiomediastinal silhouette is normal. The pulmonary vasculature is normal. The lungs and pleura l margins are clear. Impression: No evidence of an acute cardiopulmonary process. Electronically signed by: Efra Cardenas III, MD (11/06/2020 9:42 AM) [id number]
[2020-11-06 10:03] LABS: BASO % 0 % (0-3); CREATININE 0.6 mg/dL (0.6-1.0); EOS # 0.2 x10^3/uL (0.0-0.7); EOS % 2 % (0-3); GFR 121.8; HEMATOCRIT 38.2 % (36.0-47.0); HEMOGLOBIN 12.7 g/dL (12.0-15.5); LYMPH # 2.7 x10^3/uL (1.0-4.8); LYMPH % 31 % (24-48); MEAN CORPUSCULAR HEMOGLOBIN 29 pg (25-35); MEAN CORPUSCULAR HGB CONC 33 g/dL (31-37); MEAN CORPUSCULAR VOLUME 87 fL (79-100); MONO # 0.4 x10^3/uL (0.0-1.1); MONO % 4 % (0-9); NEUT # 5.4 x10^3uL (1.8-7.7); NEUT % 63 % (31-73); PLATELET COUNT 313 x10^3/uL (140-400); POTASSIUM 3.4 mmol/L (3.5-5.1); RED CELL DISTRIBUTION WIDTH 15.1 % (11.5-14.5); WHITE BLOOD COUNT 8.7 x10^3/uL (4.0-11.0)
[2020-11-06 10:10] LABS: ALBUMIN 4.1 g/dL (3.4-5.0); ALBUMIN/GLOBULIN RATIO 1.3 (1.0-1.7); TOTAL BILIRUBIN 0.2 mg/dL (0.2-1.0); TOTAL PROTEIN 7.3 g/dL (6.4-8.2)
--- NOTE | 2020-11-06 10:25 | PHYS DOC ---
Past History Past Medical History: Asthma Past Surgical History: No Surgical History Smoking: Non-smoker Alcohol Use: Rarely Drug Use: Marijuana General Adult EDM: Chief Complaint: ABDOMINAL PAIN HPI: HPI: 25-year-old female past medical history of asthma and tobacco use, presents to the ED with complaints of sharp, constant nonradiating pain around the belly button with associated nausea and vomiting that started around 5:30 AM this m orning, waking patient up. Patient reports both of her sons tested positive for RSV. States she can eat solid foods but not liquids. Last menstrual period was October 28. No past surgical history. Denies any alcohol or marijuana use. Was working last night and cannot recall any poorly prepared foods or water or sick contacts. Later states she vapes cbd oil. Asks how long it's going to take because she needs to be at work - suppose to go in at 10am today. Reports pain feels better when she leans forward. Review of Systems: Review of Systems: Constitutional: Denies fever or chills Eyes: Denies change in visual acuity HENT: Denies nasal congestion or sore throat Respiratory: Denies cough or shortness of breath Cardiovascular: Denies chest pain or edema GI: Denies melena, hematochezia or hematemesis : Denies dysuria or vaginal bleeding Musculoskeletal: Denies back pain or joint pain Integument: Denies rash or diaphoresis Neurologic: Denies headache, focal weakness or sensory changes Endocrine: Denies polyuria or polydipsia Lymphatic: Denies swollen glands Psychiatric: Denies depression or anxiety Current Medications: Current Meds: Current Medications Medications (Trade) Dose Ordered Sig/Martina Start Time Stop Time Status Last Admin Dose Admin Ondansetron HCl (Zofran) 4 mg 1X ONCE 11/06/20 09:30 11/06/20 09:31 DC 11/06/20 09:57 4 MG Sodium Chloride 1,000 ml @ 1,000 mls/hr 1X ONCE 11/06/20 09:30 11/06/20 10:29 11/06/20 09:57 1,000 MLS/HR Allergies: Allergies: Allergies Coded Allergies Type Severity Reaction Last Updated Verified Penicillins Allergy Intermediate Hives 06/13/20 Yes diphenhydramine Allergy Intermediate Hives 06/13/20 Yes cefixime Allergy Unknown 06/13/20 Yes Physical Exam: PE: Constitutional: Well developed, well nourished, no acute distress, non-toxic appearance. HENT: Normocephalic, atraumatic, Eyes: EOMI, conjunctiva normal, no discharge. Neck: Normal range of motion, supple, Cardiovascular: S1/2 present, regular rhythm Lungs & Thorax: Speaking in full sentences, bilateral equal chest rise, no tachypnea or increased work of breathing Abdomen: soft, ttp just superior to belly button, jumps with rlq and llq palpation but on repeat evaluation is calm, no rigidity or guarding Skin: Warm, dry, no erythema, no rash. [] Back: No tenderness, no CVA tenderness. [] Extremities: No tenderness, no cyanosis, Neurologic: Alert and oriented X 3, normal motor function, normal sensory function, no focal deficits noted. [] Psychologic: Affect normal, judgement normal, mood normal. [] Current Patient Data: Labs: Laboratory Tests Test 11/06/20 09:00 White Blood Count 8.7 x10^3/uL (4.0-11.0) Red Blood Count 4.40 x10^6/uL (3.50-5.40) Hemoglobin 12.7 g/dL (12.0-15.5) Hematocrit 38.2 % (36.0-47.0) Mean Corpuscular Volume 87 fL (79-100) Mean Corpuscular Hemoglobin 29 pg (25-35) Mean Corpuscular Hemoglobin Concent 33 g/dL (31-37) Red Cell Distribution Width 15.1 % (11.5-14.5) H Platelet Count 313 x10^3/uL (140-400) Neutrophils (%) (Auto) 63 % (31-73) Lymphocytes (%) (Auto) 31 % (24-48) Monocytes (%) (Auto) 4 % (0-9) Eosinophils (%) (Auto) 2 % (0-3) Basophils (%) (Auto) 0 % (0-3) Neutrophils # (Auto) 5.4 x10^3uL (1.8-7.7) Lymphocytes # (Auto) 2.7 x10^3/uL (1.0-4.8) Monocytes # (Auto) 0.4 x10^3/uL (0.0-1.1) Eosinophils # (Auto) 0.2 x10^3/uL (0.0-0.7) Basophils # (Auto) 0.0 x10^3/uL (0.0-0.2) Sodium Level 143 mmol/L (136-145) Potassium Level 3.4 mmol/L (3.5-5.1) L Chloride Level 105 mmol/L (98-107) Carbon Dioxide Level 26 mmol/L (21-32) Anion Gap 12 (6-14) Blood Urea Nitrogen 7 mg/dL (7-20) Creatinine 0.6 mg/dL (0.6-1.0) Estimated GFR (Cockcroft-Gault) 121.8 BUN/Creatinine Ratio 12 (6-20) Glucose Level 98 mg/dL (70-99) Calcium Level 9.0 mg/dL (8.5-10.1) Total Bilirubin 0.2 mg/dL (0.2-1.0) Aspartate Amino Transferase (AST) 14 U/L (15-37) L Alanine Aminotransferase (ALT) 19 U/L (14-59) Alkaline Phosphatase 74 U/L (46-116) Troponin I Quantitative < 0.017 ng/mL (0-0.055) Total Protein 7.3 g/dL (6.4-8.2) Albumin 4.1 g/dL (3.4-5.0) Albumin/Globulin Ratio 1.3 (1.0-1.7) Lipase 125 U/L (73-393) EKG: EKG: Sinus bradycardia 53 bpm, no axis deviation, normal intervals, T wave inversion lead III, no ST elevation or ST depression Radiology/Procedures: Radiology/Procedures: IMAGING REPORT Signed PATIENT: ELBERT RIBERA MACCOUNT: [id number] : 1995 LOCATION: ER AGE: 25 SEX: F EXAM STATUS: REG ER ORD. PHYSICIAN: PEGGY BANKS DO REASON: vomtiing PROCEDURE: CHEST AP ONLY XR CHEST 1V Clinical History: Reason: vomtiing / Spl. Instructions: / History: Technique: AP view of the chest was obtained at 11/06/2020 9:34 AM. Comparison: None. Findings: The cardiomediastinal silhouette is normal. The pulmonary vasculature is normal. The lungs and pleural margins are clear. Impression: No evidence of an acute cardiopulmonary process. Electronically signed by: German Box III, MD (11/06/2020 9:42 AM) [id number] DICTATED AND SIGNED BY: GERMAN BOX III, MD DATE: 11/06/20941 CC: PCP,NO; PEGGY BANKS DO ~MTH0 0 IMAGING REPORT Signed PATIENT: ELBERT RIBERA MACCOUNT: [id number] : 1995 LOCATION: ER AGE: 25 SEX: F EXAM STATUS: REG ER ORD. PHYSICIAN: PEGGY BANKS DO REASON: periumbilical pain PROCEDURE: CT ABD PELV W/ IV CONTRST ONLY CT ABDOMEN+PELVIS W dated 11/06/2020 1:53 PM Indication:Reason: periumbilical pain / Spl. Instructions: omni 300 75ml iv only, gfr >60, creat 0.6 / History: Comparison: CT 08/17/2020. Technique: CT images were made through the abdomen and pelvis using an infusion of 75 mL Omnipaque 300. One or more of the following individualized dose reduction techniques were utilized for this examination: 1. Automated exposure control 2. Adjustment of the mA and/or kV according to patient size 3. Use of iterative reconstruction technique Findings: The lung bases are clear. The liver and spleen are homogeneous in density and normal in configuration. Both kidneys enhance with contrast. No mass or obstruction is seen. The adrenal glands are not enlarged. The pancreas appears normal. No retroperitoneal or mesenteric adenopathy is seen. There is no apparent abdominal mass or inflammatory process. Images through the pelvis show no abnormality of the distal ureters or bladder. No pelvic or inguinal adenopathy is seen. The uterus and adnexal structures appear normal for age. No separate pelvic mass is seen. Evaluation of pelvic structures is somewhat limited by lack of oral contrast and lack of pelvic fat. The appendix is not confidently identified. Appendicolith described on the prior CT is not seen. There are no pericecal inflammatory changes. IMPRESSION: No definite acute abnormality. The appendix is not currently identified, and early appendicitis cannot be entirely excluded, although no inflammation is evident near the cecum. Electronically signed by: Tomeka Hicks Jr., MD (11/06/2020 2:48 PM) [id number] DICTATED AND SIGNED BY: TOMEKA HICKS Jr, MD DATE: 11/06/20 5623 CC: PCP,MAXIMUS; PEGGY BANKS DO ~MTH0 0 Heart Score: C/O Chest Pain: No Risk Factors: Risk Factors: DM, Current or recent (<one month) smoker, HTN, HLP, family history of CAD, obesity. Risk Scores: Score 0 - 3: 2.5% MACE over next 6 weeks - Discharge Home Score 4 - 6: 20.3% MACE over next 6 weeks - Admit for Clinical Observation Score 7 - 10: 72.7% MACE over next 6 weeks - Early Invasive Strategies Course & Med Decision Making: Course & Med Decision Making Pertinent Labs and Imaging studies reviewed. (See chart for details) Concern for abdominal pain, nausea and vomiting in setting of marijuana use with pancolitis. Pain has not specifically migrated to the right lower quadrant with no rigidity or guarding. Pt calm, sitting/standing and in no distress, texting on her phone. Pt is aware appendix was not visualized and states "Oh I've been told my sxs are similar to appendicitis." Reports she had similar symptoms in the past and has not been informed symptoms could be related to marijuana/cannabinoid hyperemesis syndrome. Patient with no further episodes of nausea and vomiting states her pain is well controlled. Will discharge home with strict ED return precautions were given for fever, worsening abdominal pain, intractable nausea or vomiting or dehydration. Encouraged urgent outpatient follow-up with PMD for repeat evaluation. Life-threatening processes were considered but are low suspicion at this time, given history, physical exam and ED workup. Pt was educated on all prescription medications and adverse effects. All patient's questions were answered and pt was stable at time of discharge. Life/limb-threatening differential includes but is not limited to, aortic dissection, aortic aneurysm, acute coronary syndrome, surgical abdomen (appendicitis, cholecystitis, ischemic bowel, strangulated hernia, etc), bowel obstruction or volvulus, bladder outlet obstruction, gastrointestinal bleeding, inflammatory bowel disease, peptic ulcer disease, ACS/CAD, sepsis, diverticular disease, ureterolithiasis, nephrolithiasis, ovarian or testicular torsion, ectopic , vaginal hemorrhage, or genitourinary infection. I have spoken with the patient and/or caregivers. I explained the patient's condition, diagnoses and treatment plan based on the information available to me at this time. I have answered the patient and/or caregiver's questions and addressed any concerns. The patient and/or caregivers have a good understanding of patient's diagnosis, condition and treatment plan as can be expected at this point. Vital signs have been stable. Patient's condition is stable and appropriate for discharge from the emergency department. Patient will pursue further outpatient evaluation with primary care physician or other designated or consulting physician as outlined in the discharge instructions. The patient and/or caregivers are agreeable to this plan of care and follow-up instructions have been explained in detail. The patient and/or caregivers have received these instructions in written form and have expressed an understanding of the discharge instructions. The patient and/or caregivers are aware that any significant change of condition or worsening of symptoms should prompt immediate return to this or the closest emergency department or call to 911. Pema Disclaimer: Pema Disclaimer: This electronic medical record was generated, in whole or in part, using a voice recognition dictation system. Departure Departure: Impression: Primary Impression: Periumbilical abdominal pain Additional Impressions: Nausea and vomiting Marijuana use Disposition: HOME / SELF CARE / HOMELESS Condition: STABLE Referrals: PCP,NO (PCP) Follow-up with your primary care physician in 24 to 48 hours OR FOLLOW UP WITH FAMILY MEDICINE: [address] [facility], [facility] [address] [place] [address] Patient Instructions: Abdominal Pain Additional Instructions: EMERGENCY DEPARTMENT GENERAL DISCHARGE INSTRUCTIONS Thank you for coming to [facility] (ED) today and trusting us with you care. We trust that you had a positivie experience in our Emergency Department. If you wish to speak to the department management, you may call the director at [phone]. YOUR FOLLOW UP INSTRUCTIONS ARE FOLLOWS: 1. Do you have a private Doctor? If you do not have a private doctor, please ask for a resource list of physicians or clinics that may be able to assist you with follow up care. 2. The Emergency Physician has interpreted your x-rays. The X-Ray specialist will also review them. If there is a change in the findings, you will be notified in 48 hours when at all possible. 3. A lab test or culture has been done, your results will be reviewed and you will be notified if you need a change in treatment. ADDITIONAL INSTRUCTIONS AND INFORMATION: 1. Your care today has been supervised by a physician who is specially trained in emergency care. Many problems require more than one evaluation for a complete diagnosis and treatment. We recommend that you schedule your follow up appointment as recommended to ensure complete treatment of you illness or injury. If you are unable to obtain follow up care and continue to have a problem, or if your condition worsens, we recommend that you return to the ED. 2. We are not able to safely determine your condition over the phone nor are we able to give sound medical advice over the phone. For these safety reasons, if you call for medical advice we will ask you to come to the ED for further evaluation. 3. If you have any questions regarding these discharge instructions please call the ED at [phone]. SAFETY INFORMATION: In the interest of safety, wellness, and injury prevention; we encourage you to wear your sealbelt, if you smoke; quite smoking, and we encourage family to use a protective helmet for bicycling and other sporting events that present an increased risk for head injury. IF YOUR SYMPTOMS WORSEN OR NEW SYMPTOMS DEVELOP, OR YOU HAVE CONCERNS ABOUT YOUR CONDITION; OR IF YOUR CONDITION WORSENS WHILE YOU ARE WAITING FOR YOUR FOLLOW UP APPOINTMENT; EITHER CONTACT YOUR PRIMARY CARE DOCTOR, THE PHYSICIAN WHOSE NAME AND NUMBER YOU WERE GIVEN, OR RETURN TO THE ED IMMEDIATELY. PEGGY BANKS DO Nov 06, 2020 10:25
[2020-11-06 11:04] LABS: U PREG PATIENT NEGATIVE (NEG)
[2020-11-06] MEDS ORDERED: KETOROLAC 15 MG/ML VIAL. IVP ONE (13:30)
[2020-11-06] MEDS ORDERED: IOHEXOL 300 MG/ML 75 ML VIAL. IV ONE (13:45)
--- NOTE | 2020-11-06 14:50 | RAD ---
CT ABDOMEN+PELVIS W dated 11/06/2020 1:53 PM Indication:Reason: periumbilical pain / Spl. Instructions: omni 300 75ml iv only, gfr >60, creat 0.6 / History: Comparison: CT 08/17/2020. Technique: CT images were made through the abdomen and pelvis using an infusion of 75 mL Omnipaque 30 0. One or more of the following individualized dose reduction techniques were utilized for this examinat ion: 1. Automated exposure control 2. Adjustment of the mA and/or kV according to patient size 3. Use of iterative reconstruction technique Findings: The lung bases are clear. The liver and spleen are homogeneous in density and normal in configuration . Both kidneys enhance with contrast. No mass or obstruction is seen. The adrenal glands are not enla rged. The pancreas appears normal. No retroperitoneal or mesenteric adenopathy is seen. There is no a pparent abdominal mass or inflammatory process. Images through the pelvis show no abnormality of the distal ureters or bladder. No pelvic or inguinal adenopathy is seen. The uterus and adnexal structures appear normal for age. No separate pelvic mass is seen. Evaluation of pelvic structures is somewhat limited by lack of oral contrast and lack of pe lvic fat. The appendix is not confidently identified. Appendicolith described on the prior CT is not seen. There are no pericecal inflammatory changes. IMPRESSION: No definite acute abnormality. The appendix is not currently identified, and early appendicitis canno t be entirely excluded, although no inflammation is evident near the cecum. Electronically signed by: Berhane Hicks Jr., MD (11/06/2020 2:48 PM) [id number]
[2020-11-06 15:18] LABS: BARBITURATES NEG (NEG); BENZODIAZEPINES NEG (NEG); CANNABINOIDS POS (NEG); COCAINE NEG (NEG); METHADONE NEG (NEG); OPIATES NEG (NEG); PHENCYCLIDINE NEG (NEG)
[2020-11-06 15:22] LABS: AMPHETAMINE/METHAMPHETAMINE NEG (NEG)
[2020-11-06 15:26] LABS: COLOR,URINE YELLOW
[2020-11-06 15:27] LABS: BILIRUBIN,URINE NEG (NEG); CLARITY,URINE CLEAR; GLUCOSE,URINE NEG (NEG); NITRITE,URINE NEG (NEG); UROBILINOGEN,URINE 0.2 mg/dL (0.2 mg/dL)
[2020-11-06 15:29] LABS: BACTERIA,URINE 0 /HPF (0-FEW); WBC,URINE 0 /HPF (0-4)
--- NOTE | 2020-11-06 22:04 | EKG ---
[address] [address] Test Date: 2020-11-06 Test Time: 09:49:06 Pat Name: ELBERT RIBERA Department: Room: Gender: F Core Manager: ADRIENNE : 1995 Requested By: PEGGY BANKS Order Number: [id number] Reading MD: Kalin Worrell Measurements Intervals [place] Rate: 53 P: 0 CT: 142 QRS: 28 QRSD: 88 T: 14 QT: 438 QTc: 413 Interpretive Statements SINUS RHYTHM Electronically Signed On 11-08-2020 13:25:42 CDT by Kalin Worrell
== END 2020-11-06 16:20 | disposition home or self-care (01) ==
LOC: ER 08:50
DX: R11.2 Nausea with vomiting, unspecified (principal); R10.33 Periumbilical pain; F12.10 Cannabis abuse, uncomplicated; J45.909 Unspecified asthma, uncomplicated; Z72.0 Tobacco use; Z88.0 Allergy status to penicillin; Z88.8 Allergy status to other drugs, medicaments and biological substances
CPT/HCPCS: 36415; 71045; 74177; 80053; 80307; 81001; 81025; 83690; 84484; 85025; 93005; 96361; 96374; 96375; 99285; J1885; J2405; J7030; Q9967

== ENCOUNTER 2021-06-02 08:30 | Emergency (ER) | payer MEDICAID ==
[~2021-06-02] VITALS: Ht 149.9 cm; Wt 67.0 kg
[2021-06-02 08:41] VITALS: BP 121/71
[2021-06-02] MEDS ORDERED: AZIT250T6 PO (09:07)
--- NOTE | 2021-06-02 09:07 | PHYS DOC ---
Past History Past Medical History: Asthma Past Surgical History: No Surgical History Smoking: Non-smoker Alcohol Use: None Drug Use: Marijuana General Adult EDM: Chief Complaint: FOREIGNBODY EAR HPI: HPI: 26-year-old female presents with insect in her right ear. She states that she can feel something moving around in there and is quite painful. She tried to get it out at home with tweezers and was unsuccessful. She has no other comp laints this time. Review of Systems: Review of Systems: Constitutional: Denies fever or chills Eyes: Denies change in visual acuity HENT: Foreign body right ear Respiratory: Denies cough or shortness of breath Cardiovascular: Denies chest pain or edema GI: Denies abdominal pain, nausea, vomiting, bloody stools or diarrhea : Denies dysuria Musculoskeletal: Denies back pain or joint pain Integument: Denies rash Neurologic: Denies headache, focal weakness or sensory changes Endocrine: Denies polyuria or polydipsia Lymphatic: Denies swollen glands Psychiatric: Denies depression or anxiety Allergies: Allergies: Allergies Coded Allergies Type Severity Reaction Last Updated Verified Penicillins Allergy Intermediate Hives 06/13/20 Yes diphenhydramine Allergy Intermediate Hives 06/13/20 Yes cefixime Allergy Unknown 06/13/20 Yes Physical Exam: PE: Constitutional: Well developed, well nourished, no acute distress, non-toxic appearance. [] HENT: Normocephalic, atraumatic, bilateral external ears normal, oropharynx moist, no oral exudates, nose normal. Insect within the right ear canal up against the eardrum. Superficial lacerations of the right ear canal [] Eyes: PERRLA, EOMI, conjunctiva normal, no discharge. [] Neck: Normal range of motion, no tenderness, supple, no stridor. [] Cardiovascular: Heart rate regular rhythm, no murmur [] Lungs & Thorax: Bilateral breath sounds clear to auscultation [] Abdomen: Bowel sounds normal, soft, no tenderness, no masses, no pulsatile masses. [] Skin: Warm, dry, no erythema, no rash. [] Back: No tenderness, no CVA tenderness. [] Extremities: No tenderness, no cyanosis, no clubbing, ROM intact, no edema. [] Neurologic: Alert and oriented X 3, normal motor function, normal sensory function, no focal deficits noted. [] Psychologic: Affect normal, judgement normal, mood normal. [] Current Patient Data: Vital Signs: Vital Signs Date Time Temp Pulse Resp B/P (MAP) Pulse Ox O2 Delivery O2 Flow Rate FiO2 06/02/21 08:41 98.1 84 18 121/71 (88) 97 Room Air EKG: EKG: [] Radiology/Procedures: Radiology/Procedures: [] Heart Score: C/O Chest Pain: N/A Risk Factors: Risk Factors: DM, Current or recent (<one month) smoker, HTN, HLP, family history of CAD, obesity. Risk Scores: Score 0 - 3: 2.5% MACE over next 6 weeks - Discharge Home Score 4 - 6: 20.3% MACE over next 6 weeks - Admit for Clinical Observation Score 7 - 10: 72.7% MACE over next 6 weeks - Early Invasive Strategies Course & Med Decision Making: Course & Med Decision Making Pertinent Labs and Imaging studies reviewed. (See chart for details) The patient did have an insect in her right ear. We used 1 cc of 1% lidocaine to drip into the ear and paralyze the insect. I then removed the fluid with capillary action and into a towel. I was able to completely remove the insect with alligator forceps. Given the patient's open wounds inside her ear canal and the fact that there was an insect in there I will cover her with antibiotics. She has significant allergies to penicillins. I will treat her with azithromycin. She is stable for discharge at this time. [] [place]elope[place] Disclaimer: Pema Disclaimer: This electronic medical record was generated, in whole or in part, using a voice recognition dictation system. Departure Departure: Impression: Primary Impression: Foreign body in right ear, initial encounter Disposition: HOME / SELF CARE / HOMELESS Condition: IMPROVED Referrals: PCP,NO (PCP) Patient Instructions: Ear Foreign Body, Ddzz-oh-Dyol Scripts Azithromycin (AZITHROMYCIN TABLET) 250 Mg Tablet 1 PKG PO UD for ear infection for 5 Days, #6 TAB 0 Refills 2 the first day followed by 1 for days 2-5 Prov: MARLI NICOLE DO 06/02/21 MARLI NICOLE DO Jun 02, 2021 09:07
== END 2021-06-02 09:29 | disposition home or self-care (01) ==
LOC: ER 08:30
DX: T16.1XXA Foreign body in right ear, initial encounter (principal); S01.311A Laceration without foreign body of right ear, initial encounter; J45.909 Unspecified asthma, uncomplicated; Z88.0 Allergy status to penicillin; Z88.8 Allergy status to other drugs, medicaments and biological substances; Z88.1 Allergy status to other antibiotic agents; X58.XXXA Exposure to other specified factors, initial encounter; Y93.89 Activity, other specified; Y92.89 Other specified places as the place of occurrence of the external cause; Y99.8 Other external cause status
CPT/HCPCS: 69200; 99284